=== PATIENT | female | born 1990 | race Caucasian/White ===

== ENCOUNTER 2021-07-04 13:56 | Emergency (ER) | payer MEDICAID, SELFPAY ==
[2021-07-04] MEDS ORDERED: Ketorolac Tromethamine 30 MG/ML VIAL ONE (14:35)
[2021-07-04] MEDS ORDERED: Ondansetron PF 4 MG/2 ML Vial ONE (14:36)
[2021-07-04 15:12] LABS: #Basophils 0.1 10x3/uL (0.0-0.2); %Basophils 0.5 % (0.0-2.0); %Eosinophils 0.3 % (0.0-6.0); %Lymphocytes 17.1 % (18.0-47.0); %Monocytes 8.4 % (0.0-10.0); %Neutrophils 73.5 % (40.0-75.0); Hemoglobin 13.5 g/dL (12.0-15.5); Mean Corpuscular HGB CONC 30.7 g/dL (32.0-36.0); Mean Corpuscular Hemoglobin 28.6 pg (27.0-33.0); Mean Corpuscular Volume 93.2 fl (81.6-98.3); Mean Platelet Volume 10.5 fl (7.4-10.4); Platelet Count 211 10x3/uL (150-450); RBC Distribution Width 15.9 % (11.5-14.5); Red Blood Cell (RBC) Count 4.72 10x6/uL (3.90-5.03); White Blood Cell (WBC) Count 12.3 10x3/uL (3.5-10.5)
[2021-07-04 15:37] LABS: Bilirubin Neg (Negative); Blood, Urine 25 (Negative); Clarity Clear (Clear); Glucose, Urine (Dipstick) Normal (Negative); Ketone, Urine Negative (Negative); Leukocyte 100 (Negative); Nitrite Positive (Negative); Protein, Urine (Dipstick) 30 mg/dl (Neg-Trace); Urobilinogen Normal mg/dL (Less than 2)
[2021-07-04 15:45] LABS: Amphetamine Detected (NotDetected); Barbiturates Screen Not Detected (NotDetected); Benzodiazepine Screen Not Detected (NotDetected); Cocaine Metabolite Screen Detected (NotDetected); Methadone Not Detected (NotDetected); Methamphetamine Detected (NotDetected); Opiate Screen Not Detected (NotDetected); Oxycodone Screen Not Detected (NotDetected); Phencyclidine (PCP) Not Detected (NotDetected); THC/Cannabinoid Screen Detected (NotDetected); Tricyclic Screen Not Detected (NotDetected)
[2021-07-04 15:50] LABS: Bacteria/HPF 4+ HPF (None Seen); RBC/HPF 0-3 HPF (0-3); Squamous Epithelial 0-3 HPF (0-3)
[2021-07-04 15:51] LABS: BHCG - Serum Negative (NEGATIVE); Pregs Control Background? CLEAR/WHITE (CLR/WHITE); Pregs Control Bar Appear? YES (CONTROL BAR)
[2021-07-04 15:55] LABS: ALT (SGPT) 11 U/L (8-55); AST (SGOT) 13 U/L (5-34); Albumin 3.6 g/dL (3.5-5.0); Alkaline Phosphatase 69 U/L (40-110); Anion Gap 18 mmol/L (10-20); BUN (Urea Nitrogen) 9 mg/dL (7.0-18.7); Bilirubin, Total 0.7 mg/dL (0.2-1.2); Calc. Creatinine Clearance 0 mL/min (70-130); Calcium 7.8 mg/dL (7.8-10.44); Carbon Dioxide 17 mmol/L (22-29); Chloride 108 mmol/L (98-107); Glucose 91 mg/dL (70-105); Lipase 11 U/L (8-78); Potassium 3.8 mmol/L (3.5-5.1); Protein, Total 6.6 g/dL (6.0-8.3); Sodium 139 mmol/L (136-145)
[2021-07-04 15:56] LABS: Acetaminophen Less than 10.0 mcg/mL (10.0-30.0); Alcohol Less than 10 mg/dL (Less than 10); Salicylate Less than 8.0 mg/dL (15.0-30.0)
== END 2021-07-04 16:59 | disposition home or self-care (01) ==
LOC: CSHERS 13:56
DX: N12 Tubulo-interstitial nephritis, not specified as acute or chronic (principal); K30 Functional dyspepsia; R00.1 Bradycardia, unspecified; F17.200 Nicotine dependence, unspecified, uncomplicated
CPT/HCPCS: 36415; 71045; 74176; 80053; 80306; 80307; 81003; 81015; 83690; 84484; 84703; 85025; 87077; 87086; 87186; 93005; 96361; 96374; 96375; J1885; J2405

== ENCOUNTER 2021-10-24 00:23 | Inpatient (IN) | payer SELFPAY ==
[2021-10-24] MEDS ORDERED: Doxycycline 100 MG in Sodium Chloride 0.9% 100 ML IVPB ONE (04:00)
[2021-10-24] MEDS ORDERED: Bisacodyl 5 MG TAB PO PRN (06:06)
[2021-10-24] MEDS ORDERED: HYDROcodone/Acetaminophen 5/325 mg Tablet PO PRN (06:06)
[2021-10-24] MEDS ORDERED: Zolpidem Tartrate 5 MG TAB PO PRN (06:06)
[2021-10-24] MEDS ORDERED: Piperacillin/Tazobactam 3.375 GM in Sodium Chloride 0.9% 100 ML IVPB SCH ×4 (08:00→12:00)
[2021-10-24] MEDS: Sodium Chloride 0.9% 1,000 ML IV SCH (08:40)
[2021-10-24 08:45] VITALS: BMI 22.4
[2021-10-24] MEDS: Famotidine 20 MG TAB PO SCH ×2 (12:58→21:22)
[2021-10-24] MEDS: metroNIDAZOLE 500 MG in Premix Bag 1 BAG IVPB SCH ×2 (15:26→21:23)
[2021-10-24] MEDS: Piperacillin/Tazobactam 3.375 GM in Sodium Chloride 0.9% 100 ML IVPB SCH (17:08)
[2021-10-24] MEDS ORDERED: Ketorolac Tromethamine 30 MG/ML VIAL IVP PRN (18:47)
[2021-10-24] MEDS ORDERED: Ketorolac Tromethamine 30 MG/ML VIAL IVP SCH (19:00)
[2021-10-24] MEDS: Doxycycline 100 MG CAP PO SCH (21:23)
[2021-10-25] MEDS: Ketorolac Tromethamine 30 MG/ML VIAL IVP PRN ×2 (01:16→09:28)
[2021-10-25] MEDS: Piperacillin/Tazobactam 3.375 GM in Sodium Chloride 0.9% 100 ML IVPB SCH ×3 (01:17→15:48)
[2021-10-25] MEDS: Sodium Chloride 0.9% 1,000 ML IV SCH ×3 (02:32→21:26)
[2021-10-25 05:13] LABS: #Basophils 0.1 10x3/uL (0.0-0.2); #Eosinphils 0.1 10x3/uL (0.0-0.5); #Neutrophils 8.2 10x3/uL (1.5-8.4); %Basophils 0.4 % (0.0-2.0); %Eosinophils 1.2 % (0.0-6.0); %Lymphocytes 19.4 % (18.0-47.0); %Monocytes 8.5 % (0.0-10.0); %Neutrophils 69.6 % (40.0-75.0); Hemoglobin 10.2 g/dL (12.0-15.5); Mean Corpuscular HGB CONC 33.1 g/dL (32.0-36.0); Mean Corpuscular Hemoglobin 28.3 pg (27.0-33.0); Mean Corpuscular Volume 85.3 fl (81.6-98.3); Mean Platelet Volume 9.7 fl (7.4-10.4); Platelet Count 440 10x3/uL (150-450); RBC Distribution Width 14.6 % (11.5-14.5); Red Blood Cell (RBC) Count 3.61 10x6/uL (3.90-5.03); White Blood Cell (WBC) Count 11.8 10x3/uL (3.5-10.5)
[2021-10-25] MEDS: metroNIDAZOLE 500 MG in Premix Bag 1 BAG IVPB SCH ×3 (05:56→21:16)
[2021-10-25] MEDS: Doxycycline 100 MG CAP PO SCH ×2 (08:07→20:00)
[2021-10-25] MEDS: Famotidine 20 MG TAB PO SCH ×2 (08:07→20:01)
[2021-10-25] MEDS: Ondansetron ODT 4 MG TAB PO PRN ×2 (09:28→15:48)
[2021-10-25] MEDS: HYDROcodone/Acetaminophen 5/325 mg Tablet PO PRN ×2 (14:00→20:01)
[2021-10-26] MEDS: Piperacillin/Tazobactam 3.375 GM in Sodium Chloride 0.9% 100 ML IVPB SCH ×3 (00:55→15:38)
[2021-10-26 03:32] LABS: #Eosinphils 0.1 10x3/uL (0.0-0.5); #Monocytes 0.9 10x3/uL (0.0-1.1); #Neutrophils 9.3 10x3/uL (1.5-8.4); %Basophils 0.3 % (0.0-2.0); %Eosinophils 0.8 % (0.0-6.0); %Lymphocytes 18.1 % (18.0-47.0); %Monocytes 6.7 % (0.0-10.0); %Neutrophils 73.2 % (40.0-75.0); Hemoglobin 10.5 g/dL (12.0-15.5); Mean Corpuscular HGB CONC 32.8 g/dL (32.0-36.0); Mean Corpuscular Hemoglobin 28.2 pg (27.0-33.0); Mean Platelet Volume 9.3 fl (7.4-10.4); Platelet Count 447 10x3/uL (150-450); RBC Distribution Width 14.6 % (11.5-14.5); Red Blood Cell (RBC) Count 3.72 10x6/uL (3.90-5.03); White Blood Cell (WBC) Count 12.7 10x3/uL (3.5-10.5)
[2021-10-26] MEDS: metroNIDAZOLE 500 MG in Premix Bag 1 BAG IVPB SCH ×3 (06:08→21:14)
[2021-10-26] MEDS ORDERED: Milk Of Magnesia 30 ML UDCUP PO PRN (08:25)
[2021-10-26] MEDS: Ondansetron ODT 4 MG TAB PO PRN ×2 (08:25→21:14)
[2021-10-26] MEDS: Famotidine 20 MG TAB PO SCH ×2 (08:26→21:13)
[2021-10-26] MEDS: Doxycycline 100 MG CAP PO SCH ×2 (08:26→21:13)
[2021-10-26] MEDS: Ibuprofen 800 MG TAB PO SCH ×2 (08:29→15:37)
[2021-10-26] MEDS ORDERED: Milk Of Magnesia 30 ML UDCUP PO SCH (08:30)
[2021-10-26] MEDS: HYDROcodone/Acetaminophen 5/325 mg Tablet PO PRN ×2 (08:34→21:13)
[2021-10-26] MEDS: Polyethylene Glycol 3350 17 GM Packet PO SCH (08:39)
[2021-10-26] MEDS: Sodium Chloride 0.9% 1,000 ML IV SCH (14:08)
[2021-10-27] MEDS: Ibuprofen 800 MG TAB PO SCH ×2 (00:56→09:25)
[2021-10-27] MEDS: Piperacillin/Tazobactam 3.375 GM in Sodium Chloride 0.9% 100 ML IVPB SCH ×2 (00:56→09:25)
[2021-10-27] MEDS: Sodium Chloride 0.9% 1,000 ML IV SCH (01:11)
[2021-10-27] MEDS: metroNIDAZOLE 500 MG in Premix Bag 1 BAG IVPB SCH ×2 (05:20→15:29)
[2021-10-27] MEDS: Famotidine 20 MG TAB PO SCH (09:25)
[2021-10-27] MEDS: Doxycycline 100 MG CAP PO SCH (09:25)
[2021-10-27] MEDS: Polyethylene Glycol 3350 17 GM Packet PO SCH (09:26)
[2021-10-27] MEDS: HYDROcodone/Acetaminophen 5/325 mg Tablet PO PRN (12:00)
[2021-10-27 12:04] VITALS: TEMP 98.1
[2021-10-27] MEDS ORDERED: hydrOXYzine Pamoate 25 mg Capsule PO PRN (12:18)
[2021-10-27 17:19] VITALS: BP 109/59
== END 2021-10-27 18:28 | disposition home or self-care (01) | DRG 758 ==
LOC: CSHERS 00:23 → EEVIPCON 05:57 → UNDOADMIN 05:57 → CSHPP 05:57
PROVIDERS: ADMIT Obstetrics & Gynecology; ATTEND Obstetrics & Gynecology
DX: N70.93 Salpingitis and oophoritis, unspecified (principal); K56.609 Unspecified intestinal obstruction, unspecified as to partial versus complete obstruction; Z20.822 Contact with and (suspected) exposure to COVID-19; F32.A Depression, unspecified; F12.10 Cannabis abuse, uncomplicated; F10.10 Alcohol abuse, uncomplicated; F17.210 Nicotine dependence, cigarettes, uncomplicated; K59.00 Constipation, unspecified; N73.9 Female pelvic inflammatory disease, unspecified; Z92.21 Personal history of antineoplastic chemotherapy; Z85.41 Personal history of malignant neoplasm of cervix uteri; Z91.038 Other insect allergy status
CPT/HCPCS: 36415; 76856; 83605; 85025; J1885; J2543; J3490; J7050; Q0162